=== PATIENT | female | born 1965 | race Caucasian/White ===

== ENCOUNTER 2017-09-04 07:30 | Inpatient (IN) ==
[~2017-09-04 07:30] MED LIST: ACETAMINOPHEN 500 MG TABLET PO ONE; DEXAMETHASONE 4 MG/ML INJECTION IVP ONE; FAMOTIDINE PB 20 MG/50 ML BAG IV ONE; LIDOCAINE 1% (10mg/ml) 2mL INJ PF SDV ID ONE; METOCLOPRAMIDE 10mg/2ml INJECTION IVP ONE; ONDANSETRON 4 MG/2 ML INJECTION IVP ONE
[2017-09-04] MEDS ORDERED: EPINEPHrine PF 0.25 MG, BUPIVACAINE 0.25% PF 30 ML, KETOROLAC INJ 60 MG in NS 30 ML OPSITE ONE (08:00)
--- OUTSIDE RECORDS SUMMARY | 2017-09-04 09:53 | External Medical Summary | Referral Summary ---
:1965 Author Organization [facility] [address] [place] [address], Family Medicine Address [address] [address] Care Team Providers Name Role Phone Kory Barry Primary Care Physician Encounter VC Date(s): 12/24/16 - 12/24/16 [facility] [address] [place] [address], Family Medicine [address] [address] - [place] Discharge Diagnosis: Acute left otitis media Discharge Diagnosis: AR (allergic rhinitis) Discharge Disposition: 01-Home or Self Care Attending Physician: Kory Barry DO Vital Signs Most recent to oldest [Reference Range]: 1 Temperature Tympanic [36.6-38.1 degC] 36.4 degC *LOW* (12/24/16 8:10 AM) Apical Heart Rate [60-100 bpm] 75 bpm (12/24/16 8:10 AM) Blood Pressure [90-140/60-90 mmHg] 130/72 mmHg (12/24/16 8:10 AM) Problem List Condition Effective Dates Status Health Status Informant Acute pain(Confirmed) Active Anxiety(Confirmed) Active At risk for activity Active intolerance(Confirmed)1 At risk of pressure sore(Confirmed) Active MRSA (methicillin resistant staph Active patient aureus) culture positive(Confirmed) Primary osteoarthritis of left Active knee(Confirmed) Family history of colon Active cancer(Confirmed) GERD (gastroesophageal reflux Active patient disease)(Confirmed) S/P total knee arthroplasty(Confirmed) Active [place] (hard of hearing)(Confirmed)2 Active patient Prediabetes(Confirmed) Active Impaired skin integrity(Confirmed)3 Active Insomnia(Confirmed) Active Obesity(Confirmed) Active patient Obesity(Confirmed) Active patient Osteoarthritis of both Active knees(Confirmed) Chronic insomnia(Confirmed) Active Colon polyp(Confirmed) Active Primary osteoarthritis of right Active knee(Confirmed) 1Problem added automatically by system based on initiation of At Risk for Activity Intolerance Plan of [id number] ears - rebecca left.3Problem added automatically by system based on initiation of Impaired Skin Integrity Plan of Care Allergies, Adverse Reactions, Alerts Substance Reaction Severity Status sulfa drugs Active Medications Ambien 10 mg oral tablet 10 mg 1 tabs, Oral, Bedtime (once a day), as needed for sleep, # 3 Each, 0 Refill(s), called to pharmacy (Rx) Start Date: 11/04/16 Status: OrderedAugmentin 875 mg-125 mg oral tablet 1 tabs, Oral, q12hr, X 10 days, # 20 tabs, 0 Refill(s), Pharmacy: [id number] Start Date: 12/24/16 Stop Date: 01/03/17 Status: Ordereddiclofenac sodium 75 mg oral delayed release tablet 75 mg 1 tabs, Oral, BID, # 60 tabs, 0 Refill(s), Pharmacy: [id number], 1 tabs Oral BID Start Date: 12/24/16 Status: OrderedTums 500 mg oral tablet, chewable 500 mg 1 tabs, Chewed, Bedtime (once a day), 0 Refill(s) Start Date: 06/28/16 Status: Ordered Procedures Procedure Date Related Diagnosis Body Site Arthroplasty Knee Total Replacement (Left)1 06/26/16 Arthroplasty Knee Total Replacement (Right)2 08/25/14 History of colonoscopy3 03/09/14 Tonsillectomy 03/05/05 following previous delivery4 11/16/90 Colonoscopy Colonoscopy Colonoscopy Hysterectomy and bilateral salpingo-oophorectomy sample 1auto-populated from documented surgical [id number] from documented surgical [id number] - repeat in 5 [id number] in November Social History Social History Type Response Smoking Status Never smoker Assessment and Plan Extracted from: Title: Ambulatory Patient Education Author: Kory Barry DO Date: 12/24/16 Allergy Allergies An allergy is when your body reacts to a substance in a way that is not normal. An allergic reaction can happen after you: Eat something. Breathe in something. Touch something. WHAT KINDS OF ALLERGIES ARE THERE? You can be allergic to: Things that are only around during certain seasons, like molds and pollens. Foods. Drugs. Insects. Animal dander. WHAT ARE SYMPTOMS OF ALLERGIES? Puffiness (swelling). This may happen on the lips, face, tongue, mouth, or throat. Sneezing. Coughing. Breathing loudly (wheezing). Stuffy nose. Tingling in the mouth. A rash. Itching. Itchy, red, puffy areas of skin (hives). Watery eyes. Throwing up (vomiting). Watery poop (diarrhea). Dizziness. Feeling faint or fainting. Trouble breathing or swallowing. A tight feeling in the chest. A fast heartbeat. HOW ARE ALLERGIES DIAGNOSED? Allergies can be diagnosed with: A medical and family history. Skin tests. Blood tests. A food diary. A food diary is a record of all the foods, drinks, and symptoms you have each day. The results of an elimination diet. This diet involves making sure not to eat certain foods and then seeing what happens when you start eating them again. HOW ARE ALLERGIES TREATED? There is no cure for allergies, but allergic reactions can be treated with medicine. Severe reactions usually need to be treated at a hospital. HOW CAN REACTIONS BE PREVENTED? The best way to prevent an allergic reaction is to avoid the thing you are allergic to. Allergy shots and medicines can also help prevent reactions in some cases. This information is not intended to replace advice given to you by your health care provider. Make sure you discuss any questions you have with your health care provider. Document Released: 08/30/2013 Document Revised: 05/26/2015 Document Reviewed: 02/14/2015 [employer] Patient Education 2016 [employer] No follow up information was provided. Extracted from: Title: Earache * Author: Kory Barry DO Date: 12/24/16 Impression and Plan Diagnosis Acute left otitis media (TKI17-[facility] H66.92, Discharge, Medical). AR (allergic rhinitis) ([id number] J30.9, Discharge, Medical). Plan: sx tx: tylenol, motrin, fluids, rest; otc cough and cold prn cool mist humidifier rx: augmentin continue with fexofenadine add flonase daily keep appt with dr starr f/u here as needed. Patient Instructions: Allergies, [id number].
--- OUTSIDE RECORDS SUMMARY | 2017-09-04 09:54 | External Medical Summary | Referral Summary ---
:1965 Author Organization [facility] Orthopedics Address [address] [place] [address] Care Team Providers Name Role Phone Kory Barry Primary Care Physician Encounter [facility] [id number] Date(s): 12/24/16 - 12/24/16 [facility] [address] [address] [place] [address]- [place] Discharge Disposition: 01-Home or Self Care Attending Physician: Hanna Muñoz APRN Admitting Physician: Hanna Muñoz APRN Vital Signs Most recent to oldest [Reference Range]: 1 Respiratory Rate [14-20 br/min] 16 br/min (12/24/16 11:23 AM) Problem List Condition Effective Dates Status Health Status Informant Acute pain(Confirmed) Active Anxiety(Confirmed) Active At risk for activity Active intolerance(Confirmed)1 At risk of pressure sore(Confirmed) Active MRSA (methicillin resistant staph Active patient aureus) culture positive(Confirmed) Primary osteoarthritis of left Active knee(Confirmed) Family history of colon Active cancer(Confirmed) GERD (gastroesophageal reflux Active patient disease)(Confirmed) S/P total knee arthroplasty(Confirmed) Active [place] (hard of hearing)(Confirmed)2 Active patient Prediabetes(Confirmed) Active Impaired skin integrity(Confirmed)3 Active Insomnia(Confirmed) Active Obesity(Confirmed) Active patient Obesity(Confirmed) Active patient Osteoarthritis of both Active knees(Confirmed) Chronic insomnia(Confirmed) Active Colon polyp(Confirmed) Active Primary osteoarthritis of right Active knee(Confirmed) 1Problem added automatically by system based on initiation of At Risk for Activity Intolerance Plan of Rkrg9old ears - rebecca left.3Problem added automatically by [...] days, # 20 tabs, 0 Refill(s), Pharmacy: [facility] [id number] Start Date: 12/24/16 Stop Date: 01/03/17 Status: Ordereddiclofenac sodium 75 mg oral delayed release tablet 75 mg 1 tabs, Oral, BID, # 60 tabs, 0 Refill(s), Pharmacy: [facility] [id number], 1 tabs Oral BID Start Date: 12/24/16 [...] bilateral salpingo-oophorectomy sample 1auto-populated from documented surgical [id number] from documented surgical [id number] - repeat in 5 [id number] in November Social History Social History Type Response Smoking Status Never smoker
--- OUTSIDE RECORDS SUMMARY | 2017-09-04 09:54 | External Medical Summary | Referral Summary ---
:1965 Author Organization [facility] [address] Address [address] [place] [address] Care Team Providers Name Role Phone Kory Barry Primary Care Physician Encounter VC Date(s): 01/10/17 - 01/10/17 [facility] [address] [address] [place] [address]- [place] Discharge Disposition: 01-Home or Self Care Attending Physician: Abbey Monzon DO Admitting Physician: Abbey Monzon DO Vital Signs Most recent to oldest [Reference Range]: 1 Temperature Tympanic [36.6-38.1 degC] 36.5 degC *LOW* (01/10/17 1:39 PM) Peripheral Pulse Rate [60-100 bpm] 83 bpm (01/10/17 1:39 PM) Blood Pressure [90-140/60-90 mmHg] 142/78 mmHg *HI* (01/10/17 1:39 PM) SpO2 98 % (01/10/17 1:39 PM) Problem List Condition Effective Dates Status Health Status Informant Acute pain(Confirmed) Active Anxiety(Confirmed) Active At risk for activity Active intolerance(Confirmed)1 At risk of pressure sore(Confirmed) Active MRSA (methicillin resistant staph Active patient aureus) culture positive(Confirmed) Primary osteoarthritis of left Active knee(Confirmed) Family history of colon Active cancer(Confirmed) GERD (gastroesophageal reflux Active patient disease)(Confirmed) S/P total knee arthroplasty(Confirmed) Active [place] (hard of hearing)(Confirmed)2 Active patient Prediabetes(Confirmed) Active Impaired skin integrity(Confirmed)3 Active Insomnia(Confirmed) Active Obesity(Confirmed) Active patient Obesity(Confirmed) Active patient Osteoarthritis of both Active knees(Confirmed) Chronic insomnia(Confirmed) Active Colon polyp(Confirmed) Active Primary osteoarthritis of right Active knee(Confirmed) 1Problem added automatically by system based on initiation of At Risk for Activity Intolerance Plan of Dwci3hcn ears - rebecca left.3Problem added automatically by system based on initiation of Impaired Skin Integrity Plan of Care Allergies, Adverse Reactions, Alerts Substance Reaction Severity Status sulfa drugs Active Medications Ambien 10 mg oral tablet 10 mg 1 tabs, Oral, Bedtime (once a day), as needed for sleep, # 3 Each, 0 Refill(s), called to pharmacy (Rx) Start Date: 11/04/16 Status: Ordereddiclofenac sodium 75 mg oral delayed release tablet 75 mg 1 tabs, Oral, BID, # 60 tabs, 0 Refill(s), Pharmacy: [id number], 1 tabs Oral BID Start Date: 12/24/16 [...] bilateral salpingo-oophorectomy sample 1auto-populated from documented surgical [id number] from documented surgical [id number] - repeat in 5 [id number] in November Social History Social History Type Response Smoking Status Never smoker
[2017-09-04 10:32] VITALS: BMI 39.9
[2017-09-04] MEDS ORDERED: VANCOMYCIN 1,000 MG INJECTION ONE (10:39)
[2017-09-04] MEDS ORDERED: BUPIVACAINE 0.25% (2.5mg/ml) PF 30ml INJECTION ONE (10:40)
[2017-09-04] MEDS ORDERED: LIDOCAINE 1% (10mg/ml) 30ml SDV INJ ONE (10:40)
[2017-09-04] MEDS: LR 1,000 ML IV SCH ×2 (10:45→13:29)
[2017-09-04] MEDS: NOZIN NASAL SWAB NAS SCH ×5 (10:52→20:07)
--- NOTE | 2017-09-04 11:06 | Anesthesia Preoperative Report ---
Anesthesia Preoperative Record - Date and Time Date: 09/04/17 Preoperative Diagnosis: Lt TKA Rev T84.84XA Proposed Procedure: Left knee exploration with repair of capsule NPO Since Date: 09/04/17 NPO Since Time: 09:30 (sip H2O with meds) Allergies/Adverse Reactions: Allergies Allergy/AdvReac Type Severity Reaction Status Date / Time Sulfa (Sulfonamide Allergy Intermediate Rash Verified 09/04/17 10:40 Antibiotics) - Vital Signs Vital Signs: Temperature 98.7 F 09/04/17 10:31 Pulse Rate 78 09/04/17 10:31 Respiratory Rate 15 09/04/17 10:31 Blood Pressure 135/85 09/04/17 10:31 Pulse Oximetry 96 09/04/17 10:31 Height and Weight: Height 6 ft Weight 133.6 kg Body Mass Index 39.9 - Medications Inpatient Medications: Current Medications Cefazolin Sodium (Kefzol) 3 g IVP PREOP ONE Stop: 09/04/17 11:31 Lactated Ringer's (Lactated Ringers) 1,000 mls @ 50 mls/hr IV .Q20H AMANDA Last Admin: 09/04/17 10:45 Dose: 50 mls/hr Isopropyl Alcohol (Nozin Nasal Swab) 1 each HARVEY Q1M AMANDA Stop: 09/04/17 16:33 Last Admin: 09/04/17 10:59 Dose: 1 each Sodium Chloride (Iv Flush) 10 - 80 ml IV PRN PRN PRN Reason: Flushing Home Medications: Home Medications Medication Instructions Recorded Confirmed Type Advil (Ibuprofen) 200 mg capsule 800 mg PO BID cap 06/11/17 09/04/17 History Ambien (zolpidem) 10 mg tablet 10 mg PO HS 06/11/17 09/04/17 History Tylenol Arthritis 650 mg 1,300 mg PO BID tab 06/11/17 09/04/17 History tablet,extended release CALCIUM CARBONATE Chewable [Tums] 500 mg PO PRN PRN 09/04/17 09/04/17 History Is Patient on Beta Franco?: No - Medical History Respiratory: DENIES: Asthma, Bronchitis, Chronic Obstructive Pulmonary Disease (COPD), Dyspnea, Orthopnea, Pulmonary Embolism, Pneumonia, Upper Respiratory Infection, Pulmonary Edema, Sleep Apnea, Tuberculosis, Other Cardiovascular: DENIES: Abnormal EKG, Angina, Arrhythmia, Congestive Heart Failure, Coronary Artery Disease, Heart Murmur, Hypertension, Hypotension, High Cholesterol, Myocardial Infarction, Rheumatic Fever, Valvular Heart Disease, Other Gastrointestional: Reports: Gastroesophageal Reflux Disease (takes Tums prn- no nocturnal symptoms), Morbid Obesity Neuro/Musculoskeletal: Reports: HX.OSAR (knees, right shoulder) Renal/Endocrine: DENIES: Diabetes Mellitus Type 1, Diabetes Mellitus Type 2, Renal Failure, Dialysis, Thyroid Disease, Weight Loss, Weight Gain, Other Other History: DENIES: Anesthesia Reactions, Now, Blood Transfusions, Chemotherapy , Cancer, Hemophilia, Malignant Hyperthermia, Sickle Cell Disease, Other - Surgical History HEENT Surgeries: Reports: Tonsillectomy GI Surgery/Treatments: Reports: Colonoscopy (X 4 or 5) Musculoskeletal Surgery/Tx: Reports: Total Knee Replacement (Rt and Lt) Reproductive Surgery/Treatment: Reports: Section (x2), Hysterectomy Anesthesia Reactions: None Hx Family Anesthesia Reaction: No History of Motion Sickness: No - Social History Smoking Status: Never smoker Substance Use Type: does not use Alcohol Intake: current Alcohol Intake Frequency: holidays/special occasions only - Pertinent Findings EKG: Sinus Rhythm - Physical Exam Respiratory Exam: Present: lungs clear, bilateral breath sounds equal Cardiovascular Exam: Present: regular rate and rhythm, no murmur - Airway Assessment Mallampati Score: II TMD: 3 Fingerbreadths Neck Extension: fair Overall Assessment: may be difficult intubation - ASA ASA Score: 2 - Plan Anesthesia: Neuroaxial Peripheral Nerve Block: Other (Post Op Adductor Canal Block) - Discussion Discussion: Discussed risks/options/alternatives of anesthesia and questions answered. Patient consents. Nursing pain assessment noted. Present for Discussion: other (none) Attestation Statement: Prior to the delivery of any anesthetic medication, I examined the patient, developed the plan, obtained the patient's consent and discussed the risk and benefits of the procedure with the patient/guardian. - Additional Information Seen by Anesthesia: Yes
[2017-09-04] MEDS ORDERED: PROPOFOL 500 MG/50 ML VIAL ONE ×5 (11:30→14:05)
[2017-09-04] MEDS ORDERED: CEFAZOLIN 1 G INJECTION IVP ONE (11:30)
[2017-09-04] MEDS ORDERED: PROPOFOL 20 ML ONE ×3 (11:30→13:40)
[2017-09-04] MEDS ORDERED: FentaNYL 250 MCG/5 ML INJECTION ONE (11:30)
[2017-09-04] MEDS ORDERED: MIDAZOLAM 2mg/2ml INJECTION ONE (11:34)
[2017-09-04] MEDS ORDERED: LIDOCAINE 2% (100mg/5mL) 5ml PF SDV ONE (12:09)
[2017-09-04] MEDS ORDERED: BUPIVACAINE 0.5% (5mg/ml) PF 30ml INJ SDV ONE (13:41)
--- NOTE | 2017-09-04 14:40 | Anesthesia Procedure Note ---
Peripheral Nerve Blockade - Procedure Physician: Marito Shin MD Date: 09/04/17 Surgical Procedure: Left Knee Repair of Medial Patella Femoral Ligament Discussion: Discussed risks/options/alternatives of anesthesia and questions answered. Patient consents. Nursing pain assessment noted. Block Start: 14:24 Block Stop: 14:26 Blocked Employed: Adductor Canal Indication: Post-Operative Pain Approach: Left Side Confirmed Position: Supine Patient: Consent, Risks/Benefits Discussed, Informed, Post Block Act. Discussed Initial Vital Signs: Temperature 98.7 F 09/04/17 10:31 Temperature Source Oral 09/04/17 10:31 Pulse Rate 78 09/04/17 10:31 Respiratory Rate 15 09/04/17 10:31 Blood Pressure 135/85 09/04/17 10:31 Blood Pressure Mean 101 09/04/17 10:31 Blood Pressure Position Sitting 09/04/17 10:31 Pulse Oximetry 96 09/04/17 10:31 Oxygen Delivery Method 09/04/17 10:31 Post Vital Signs: Temperature 98.7 F 09/04/17 10:31 Pulse Rate 78 09/04/17 10:31 Respiratory Rate 15 09/04/17 10:31 Blood Pressure 135/85 09/04/17 10:31 Pulse Oximetry 96 09/04/17 10:31 Initial Pain Pain Score: 0 Post Block Pain Score: 0 Prep: Duraprep Ultrasound Used?: Yes - Injectate Bupivacaine (%): 0.5 Bupivacaine (mL): 20 Was Epi 1:200,000 Used?: No Injection: Injection made incrementally with constant monitoring and aspiration every ml
--- NOTE | 2017-09-04 14:42 | Anesthesia Postoperative Note ---
- Date and Time Date: 09/04/17 Time: 14:42 - Status Patient Participated in Evaluation: Patient Participated in Person Vital Signs: Temperature 98.7 F 09/04/17 10:31 Pulse Rate 78 09/04/17 10:31 Respiratory Rate 15 09/04/17 10:31 Blood Pressure 135/85 09/04/17 10:31 Pulse Oximetry 96 09/04/17 10:31 Respiratory Function: Airway Patent Cardiovascular Function: Regular Pulse EKG: Sinus Rhythm Mental Status: Alert and Oriented Pain Intensity: 0 Hydration: IV Infusing Complications During Recover: None Apparent - Follow-Up Instructions Instructions: Per Surgeon
[2017-09-04] MEDS ORDERED: DiphenhydrAMINE 50 MG/ML INJECTION IVP PRN (15:12)
[2017-09-04] MEDS ORDERED: LORazepam 1 MG TABLET PO PRN (15:12)
[2017-09-04] MEDS ORDERED: ONDANSETRON 4 MG/2 ML INJECTION IVP PRN (15:12)
[2017-09-04] MEDS ORDERED: DiphenhydrAMINE 25 MG CAPSULE PO PRN (15:12)
[2017-09-04] MEDS ORDERED: NS 1,000 ML IV SCH (15:12)
[2017-09-04] MEDS ORDERED: NOZIN NASAL SWAB NAS ONE (15:12)
[2017-09-04] MEDS ORDERED: Oxycodone *IR* 5 MG TABLET PO PRN (15:12)
--- NOTE | 2017-09-04 15:37 | Remote Fluorsocopy Report ---
Indication: Medial Patella Femoral Ligament Repair PROCEDURE: RF knee LT 2 view: Encounter: Initial Comparison: None Findings: Single fluoroscopic spot image shows a total knee prosthesis with a metallic pin or screw projecting over the posterior distal femur. Impression: Fluoroscopy as above. Fluoroscopy time is 21 seconds. Fluoroscopy dose is 218.8 mRad. .
[2017-09-04] MEDS ORDERED: FALL RISK - PHARMACY CONSULT MC ONE (15:53)
[2017-09-04 16:09] VITALS: TEMP 96.8
[2017-09-04] MEDS: ACETAMINOPHEN 325 MG TABLET PO SCH ×2 (16:11→20:04)
[2017-09-04] MEDS ORDERED: SALINE FLUSH 10ml SYRINGE IV PRN (16:29)
[2017-09-04] MEDS ORDERED: CEFAZOLIN 3 G in NS 100 ML IV SCH (19:30)
[2017-09-04 20:00] VITALS: BP 140/78; PULSE 80; RESP 18; O2SAT 95
[2017-09-04] MEDS ORDERED: DOCUSATE SODIUM 100 MG CAPSULE PO SCH (21:00)
[2017-09-04] MEDS ORDERED: ZOLPIDEM 10 MG TABLET PO SCH (21:00)
[2017-09-04] MEDS ORDERED: ASPIRIN *EC* 81 MG TABLET PO SCH (21:00)
[2017-09-04] MEDS ORDERED: NAPROXEN 220 MG TABLET PO SCH (21:00)
[2017-09-04] MEDS ORDERED: SENNOSIDES 8.6 MG TABLET PO SCH (21:00)
--- NOTE | 2017-09-05 07:39 | Operative Note ---
DATE OF SURGERY 09/04/2017 PREOPERATIVE DIAGNOSIS Left total knee arthroplasty patellar instability. POSTOPERATIVE DIAGNOSIS Left total knee arthroplasty patellar instability. PROCEDURE Left knee patellofemoral ligament augmentation. SURGEON Marito Shin MD NUCLEAR FUEL PROCESSING TECHNICIAN Opal Tolbert APRN ANESTHESIA Spinal. EBL AND FLUIDS Please see Anesthetic Records. DESCRIPTION OF PROCEDURE Mrs. Lane and her left knee were identified and marked in the preoperative holding area. She was brought back to the operating suite and placed supine on the operating table after spinal anesthetic was administered. The left lower extremity was prepped and draped in my normal sterile fashion. Time-out was performed. I took her knee through a range of motion. She did dislocate laterally past 90 degrees of flexion. She definitely had laxity to her patella but I was able to translate it medially and laterally with the knee in extension. I started by excising her previous anterior midline incisional scar which was about half a centimeter in width in some areas. Sharp dissection was then carried through the subcutaneous tissue down to the capsule. There was no obvious tear of the capsule, but there was a defect noted just medial to the patella centrally which possibly could have been a previous rupture of her medial patellofemoral ligament. A medial parapatellar capsulotomy was then performed. I did perform a lateral release. There was no obvious complication with the femoral or tibial components or the plastic spacer. Patella button also was intact, in good position. I cleared off soft tissue over the medial patella to allow for our anchors. Two SwiveLock anchors were then drilled for with guidewires, then overdrilled and then placed with a FiberTape suture as well as a #2 FiberWire into each SwiveLock. Both achieved a good bite and were tested for strength. A plane was then made superficial to the capsule medially down to the medial femoral condyle. Fluoroscopy was then brought in. A perfect lateral was obtained. We then used the template to find our insertion point for the FiberTape into the medial femoral condyle. Guidepin was then placed. This was overdrilled. The FiberTape was then passed down from the anterior incision to the medial incision through the tunnel we had developed. Both ends of the FiberTape were placed into another SwiveLock and this was inserted fdc. We tested the knee through a range of motion to ensure that it did act as a checkrein to dislocation which it did all the way to 120 degrees, so the SwiveLock was then inserted. We also ensured that we were not too tight with the knee in extension or mid flexion, which were not. The excess FiberTape was then cut short and again the knee was taken through a range of motion to ensure good fixation, which we did. The wound was thoroughly irrigated once more with both Betadine and normal saline. I then used the #2 FiberWires that were inserted with the SwiveLock in the patella to help repair the [place] MPFL using horizontal suture. I then used some more #2 FiberWire to reclose the capsule, reefing it a bit as we did so and again using #2 interrupted FiberWire over this and then we did a running #1 Vicryl in the capsule followed by 2-0 Vicryl in the subcutaneous tissue followed by an 0 V- Loc barbed suture followed by 2-0 Monoderm in the subcuticular layer. The medial skin incision was also closed with 2-0 pop-offs and Monoderm. A sterile dressing will then be placed and the dressings will be removed. She will be taken to the recovery room under the care of Anesthesia. She tolerated the procedure well. There were no complications. THOMAS
[2017-09-05] MEDS ORDERED: POLYETHYL GLYCOL 3350 17gm PACKET PO SCH (09:00)
[2017-09-05] MEDS ORDERED: SENNOSIDES 8.6 MG TABLET PO PRN (13:59)
[2017-09-06] MEDS ORDERED: BISACODYL 10 MG SUPPOSITORY RECTALLY SCH (20:00)
== END 2017-09-04 20:42 | disposition home or self-care (01) | DRG 489 ==
LOC: NMC.PERIOP 09:41 → SRG 14:57
PROVIDERS: ADMIT Orthopaedic Surgery; ATTEND Orthopaedic Surgery